=== PATIENT | female | born 1980 | race Caucasian/White ===

== ENCOUNTER 2020-09-24 11:20 | Outpatient (REF) | payer OTHER, SELFPAY ==
--- NOTE | 2020-09-24 11:26 | MM_ITS ---
EXAMINATION: MM SCREENING DIGITAL BREAST TOMOSYNTHESIS, BILATERAL CLINICAL INFORMATION: Screening. Asymptomatic. The lifetime risk of breast cancer based on the Tyrer-Cuzick Model is 7.3%. COMPARISON: Mammography: September 17, 2019 and studies dating back to November 13, 2013 TECHNIQUE: Digital breast tomosynthesis is performed in both the craniocaudal and mediolateral oblique views along with computer-aided detection (CAD). Synthesized 2D images are generated from the tomosynthesis. FINDINGS: The breasts are heterogeneously dense, which may obscure small masses (ACR BI-RADS breast composition Category c). There are no significant masses, abnormal calcifications, or other abnormalities. MM/MM tomosynthesis screening BI IMPRESSION: There are no significant changes from prior study. ASSESSMENT: BI-RADS 1: Negative RECOMMENDATION: Routine annual mammography screening. This patient's information was entered into a reminder system with a target due date for their next mammogram.
== END 2020-09-24 11:21 | disposition home or self-care (01) ==
LOC: HO.MAMMO 11:20
PROVIDERS: PCP Internal Medicine; Visit Provider Internal Medicine
DX: Z12.31 Encounter for screening mammogram for malignant neoplasm of breast (principal)
CPT/HCPCS: 77063; 77067

== ENCOUNTER 2020-11-07 18:17 | Outpatient (REF) | payer OTHER, SELFPAY | END 2020-11-07 18:18 | disposition home or self-care (01) | LOC: HO.LNP 18:17 | PROVIDERS: Visit Provider Internal Medicine | DX: R30.0 Dysuria (principal) | CPT/HCPCS: 87086 ==

== ENCOUNTER 2021-04-09 12:20 | Outpatient (REF) | payer OTHER, SELFPAY ==
[2021-04-09 13:54] LABS: MANUAL DIFF FLAG NO
[2021-04-09 14:00] LABS: Basophils Percent Auto 0.6 % (0-2); Eosinophils Percent Auto 0.6 % (0-4); Hematocrit 33.7 % (37-47); Lymphocytes Absolute Auto 1.1 X10*3/uL (1.2-4.9); Lymphocytes Percent Auto 29.2 % (20-40); Mean Corpuscular HGB Conc 32.6 g/dl (31.0-35.0); Mean Corpuscular Hemoglobin 27.4 pg (27.0-33.0); Mean Corpuscular Volume 83.8 fL (80-98); Mean Platelet Volume 12.3 fL (9.4-12.3); Monocytes Absolute Auto 0.3 X10*3/uL (0.1-1.2); Monocytes Percent Auto 7.7 % (2-11); Neutrophils Absolute Auto 2.3 X10*3/uL (2.0-8.3); Neutrophils Percent Auto 61.9 % (45-73); Platelet Count 203 X10*3/uL (160-400); Red Blood Count 4.02 X10*6/uL (4.20-5.50); Red Cell Distribution Width 12.9 % (11.0-16.0); White Blood Count 3.6 X10*3/uL (4.8-10.8)
[2021-04-09 14:18] LABS: Alanine Aminotransferase 12 U/L (0-31); Albumin Level 4.1 g/dL (3.5-5.0); Alkaline Phosphatase 51 U/L (39-117); Anion Gap 12 (12-20); Aspartate Amino Transferase 16 U/L (5-31); Bilirubin Total 0.6 mg/dL (0.0-1.0); Blood Urea Nitrogen 10 mg/dL (9-16); Carbon Dioxide 25 mmol/L (22-29); Chloride 105 mmol/L (96-108); Cholesterol 158 mg/dL; Estimated Glomerular Filt Rate > 60; Glucose Fasting 81 mg/dL (60-99); HDL Cholesterol 55 mg/dL; LDL Cholesterol Calculated 93 mg/dl; Potassium 3.9 mmol/L (3.3-5.1); Sodium 138 mmol/L (135-145); Total Protein 7.3 g/dL (6.5-8.0); Triglycerides 54 mg/dL
[2021-04-09 14:41] LABS: TSH reflex Free T4 0.94 uIU/mL (0.32-4.0)
[2021-04-14 13:27] LABS: Vitamin D 25-OH, D2 <4 ng/mL; Vitamin D 25-OH, D3 53 ng/mL; Vitamin D 25-OH, Total 53 ng/mL (30-100)
== END 2021-04-09 12:21 | disposition home or self-care (01) ==
LOC: HO.HMGCLDS 12:20
PROVIDERS: PCP Internal Medicine; Visit Provider Internal Medicine
DX: Z00.01 Encounter for general adult medical examination with abnormal findings (principal); E66.3 Overweight; L70.9 Acne, unspecified; R21 Rash and other nonspecific skin eruption
CPT/HCPCS: 36415; 80053; 80061; 82306; 84443; 85025

== ENCOUNTER 2021-04-15 14:48 | Outpatient (REF) | payer OTHER, SELFPAY ==
[2021-04-15 17:00] LABS: Iron 65 mcg/dL (30-160); Percent Iron Saturation 17 % (15-50); Total Iron Binding Capacity 383 mcg/dL (228-428); Unsaturated Iron Binding 318 ug/dL
[2021-04-15 17:20] LABS: Ferritin 11 ng/mL (10-250)
[2021-04-15 17:47] LABS: Vitamin B12 > 2000 pg/mL (200-900)
== END 2021-04-15 14:49 | disposition home or self-care (01) ==
LOC: HO.HMGCLDS 14:48
PROVIDERS: PCP Internal Medicine; Visit Provider Internal Medicine
DX: D64.9 Anemia, unspecified (principal)
CPT/HCPCS: 36415; 82607; 82728; 83540

== ENCOUNTER 2021-10-29 12:53 | Outpatient (REF) | payer OTHER, SELFPAY ==
[2021-10-29 13:07] LABS: Binax Internal Control QC Valid; Binax Now Covid-19 Ag Negative (Negative)
== END 2021-10-29 12:54 | disposition home or self-care (01) ==
LOC: HO.LAB 12:53
PROVIDERS: Visit Provider Internal Medicine
DX: Z20.822 Contact with and (suspected) exposure to COVID-19 (principal)
CPT/HCPCS: C9803

== ENCOUNTER 2023-04-12 12:30 | Outpatient (REF) | payer OTHER, SELFPAY ==
--- NOTE | ~2023-04-12 | XR_ITS ---
EXAMINATION: XR THORACOLUMBAR SPINE CLINICAL INFORMATION: Pain thoracic spine COMPARISON: Lumbar spine 04/02/2016. MRI dorsal spine 11/16/2012 TECHNIQUE: 3 views FINDINGS: Maintained thoracic kyphosis. There is mild deformity of T11 vertebra likely old injury. There is loss of T10-T11 disc height. Rest of the disc heights are normal. No lytic or sclerotic process seen. XR/XR thoracic spine 2V IMPRESSION: Mild deformity of T11 vertebra likely old injury. This was noted on previous MRI 11/16/2012. No additional bony abnormality seen.
[2023-04-12 16:15] LABS: MANUAL DIFF FLAG NO
[2023-04-12 16:29] LABS: Basophils Percent Auto 0.6 % (0-2); Hematocrit 36.1 % (37.0-47.0); Hemoglobin 11.3 g/dl (12.0-16.0); Lymphocytes Absolute Auto 0.9 X10*3/uL (1.2-4.9); Lymphocytes Percent Auto 27.7 % (20-40); Mean Corpuscular HGB Conc 31.3 g/dl (31.0-35.0); Mean Corpuscular Hemoglobin 25.8 pg (27.0-33.0); Mean Corpuscular Volume 82.4 fL (80.0-98.0); Mean Platelet Volume 12.9 fL (9.4-12.3); Monocytes Absolute Auto 0.3 X10*3/uL (0.1-1.2); Monocytes Percent Auto 8.7 % (2-11); Neutrophils Absolute Auto 1.9 x10*3/uL (2.0-8.3); Platelet Count 205 X10*3/uL (160-400); Red Blood Count 4.38 X10*6/uL (4.20-5.50); Red Cell Distribution Width 14.6 % (11.0-16.0); White Blood Count 3.1 X10*3/uL (4.8-10.8)
[2023-04-12 16:57] LABS: Alanine Aminotransferase 11 U/L (0-31); Albumin Level 4.1 g/dL (3.5-5.0); Alkaline Phosphatase 47 U/L (39-117); Anion Gap 10 (12-20); Aspartate Amino Transferase 17 U/L (5-31); Bilirubin Total 0.4 mg/dL (0.0-1.0); Blood Urea Nitrogen 9 mg/dL (9-16); Calcium 9.5 mg/dL (8.4-10.2); Carbon Dioxide 25 mmol/L (22-29); Chloride 107 mmol/L (96-108); Cholesterol 167 mg/dL; Estimated Glomerular Filt Rate > 60; Glucose Fasting 84 mg/dL (60-99); HDL Cholesterol 61 mg/dL; LDL Cholesterol Calculated 98 mg/dl; Potassium 4.3 mmol/L (3.3-5.1); Sodium 138 mmol/L (135-145); Total Protein 7.3 g/dL (6.5-8.0); Triglycerides 44 mg/dL
[2023-04-12 17:05] LABS: Ferritin 6 ng/mL (10-250); TSH reflex Free T4 1.21 uIU/mL (0.32-4.0)
[2023-04-12 17:11] LABS: Vitamin B12 1429 pg/mL (200-900)
[2023-04-17 15:53] LABS: Vitamin D 25-OH, D2 <4 ng/mL; Vitamin D 25-OH, D3 48 ng/mL; Vitamin D 25-OH, Total 48 ng/mL (30-100)
== END 2023-04-12 12:31 | disposition home or self-care (01) ==
LOC: HO.HMGCX 12:30
PROVIDERS: PCP Internal Medicine; Visit Provider Internal Medicine
DX: Z00.01 Encounter for general adult medical examination with abnormal findings (principal); M54.6 Pain in thoracic spine; R21 Rash and other nonspecific skin eruption; R53.83 Other fatigue; G47.9 Sleep disorder, unspecified
CPT/HCPCS: 36415; 72070; 80053; 80061; 82306; 82607; 82728; 84443; 85025

== ENCOUNTER 2023-05-06 13:22 | Outpatient (AMB) | payer OTHER, SELFPAY ==
--- NOTE | 2023-05-06 13:24 | MHC.PC.OV ---
Vital Signs 05/06/23 13:25 Height 5 ft 1 in Weight 155 lb 2 oz BMI 29.3 BP 126/62 Blood Pressure Location Rt brachial Position Sitting Pulse 73 Pulse Source Pulse Oximeter Pulse Oximetry (%) 94 Oxygen Delivery Method Room Air Intake Visit Reasons: 4 week follow up Allergies No Known Allergies Allergy (Verified 05/06/23 13:24) Medication List - Last Reconciled 05/06/23 by Junaid Sadler MD clotrimazole-betamethasone 1-0.05 % 1 appl topical ONCE 30 days Tobacco use date assessed: 05/06/23 Dental Screening Dental Screen Date: 05/06/23 Did you have a dental visit in the last 12 months?: No Did you have a dental problem in the last 6 months where you did not have access to dental care?: No Was dental information given to patient?: No HPI 4 week follow up HPI Details Follow-up appointment Patient never used the cream I sent for her rash Her rash is better X-ray of thoracic spine showed Mild deformity of T11 vertebra likely old injury. This was noted on previous MRI 11/16/2012. No additional bony abnormality seen. Findings explained to patient Iron level is low at 6 hemoglobin slightly low I would recommend for her to start taking iron supplement Should avoid B12 supplement level is still high. [facility] Social History Housing: House Alcohol intake: never Patient Tobacco Use Status: Never used Tobacco e-Cigarette/Vaping Use: Never Used Second Hand Smoke Exposure: No service: No Current occupational status: employed Cognitive needs: No Hearing needs: No Vision needs: No Questionnaire Thrive Questionnaire Date Thrive assessed: 04/06/22 AUDIT C Alcohol Use Questionnaire (AUDIT-C) 1. How often do you have a drink containing alcohol?: Never 3. How often do you have six or more drinks on one occasion?: Never Total Score: 0 Score Reviewed/Action Taken: Yes ANNELIESE-7 AMB Questionnaire ANNELIESE-7 Date ANNELIESE - 7 assessed: 04/06/22 Source: Developed by Drs. David Tracy, Danielle Armstrong, Artemio Drummond and colleagues, with an educational jose from [employer]. Review of Systems Const Denies chills and Denies fever(s) ENT Denies epistaxis and Denies nasal discharge Card Denies chest pain Resp Denies chest congestion, Denies cough and Denies hemoptysis GI Denies diarrhea and Denies nausea Skin/Breast Denies rash Neuro Reports no additional complaints Psych Reports no additional complaints Endo Reports no additional complaints Physical exam (Primary Care) Vital Signs: Last Vital Signs Pulse 73 05/06/23 13:25 BP 126/62 05/06/23 13:25 Pulse Ox 94 05/06/23 13:25 Oxygen Delivery Method Room Air 05/06/23 13:25 BMI result Body Mass Index 29.3 Tobacco/Smoking Status: Tobacco use Status Tobacco use date assessed 05/06/23 05/06/23 13:30 Patient Tobacco Use Status Never used Tobacco 05/06/23 13:30 e-Cigarette/Vaping Use Never Used 05/06/23 13:30 Thrive Assessment: Date of Thrive Assessment Date Thrive assessed 04/06/22 05/06/23 13:30 Const General: cooperative, comfortable and no acute distress Orientation/consciousness: patient oriented x3 HENMT Head: Yes normocephalic Eyes General: appearance normal, both eyes and all related structures Neck Neck: Yes supple Resp Effort & Inspection: normal respiratory effort, no cough and no stridor Cardio Rhythm: regular rhythm Heart sounds: S1 normal heart sound present and S2 normal heart sound present Skin General skin exam: turgor normal Neuro General: patient oriented x3, tone normal and moves all extremities Extrem Right lower extremity: no edema Left lower extremity: no edema Results Reviewed Results Reviewed: Laboratory Tests 04/12/23 04/12/23 04/12/23 12:40 12:40 12:40 Creatinine 0.77 Fasting Glucose 84 Ferritin 6 L LDL Cholesterol, Calc 98 Vitamin B12 1429 H 25-Hydroxy Vitamin D3 48 TSH 1.21 Assessment and Plan Assessment & Plan (1) Iron deficiency anemia: Code(s): D50.9 - Iron deficiency anemia, unspecified (2) Thoracic back pain: Code(s): M54.6 - Pain in thoracic spine (3) Rash: Code(s): R21 - Rash and other nonspecific skin eruption (4) High serum vitamin B12: Code(s): R79.89 - Other specified abnormal findings of blood chemistry Plan Follow-up appointment Patient never used the cream I sent for her rash patient says that she was afraid because it had steroid in it Her rash is better X-ray of thoracic spine showed Mild deformity of T11 vertebra likely old injury. This was noted on previous MRI 11/16/2012. No additional bony abnormality seen. Findings explained to patient Iron level is low at 6 hemoglobin slightly low I would recommend for her to start taking iron supplement She says that she is having abdominal cramping when she takes iron, I would recommend to change the formulation to liquid iron and see if that helps. She can mix that with orange juice Should avoid B12 supplement level is still high. Coding Level of Care Code Est Pt Level 4 (06815) Diagnoses Iron deficiency anemia D50.9 Thoracic back pain M54.6 Rash R21 High serum vitamin B12 R79.89
[2023-05-06 13:25] VITALS: BP 126/62; PULSE 73; O2SAT 94; BMI 29.3
== END 2023-05-06 14:08 | disposition home or self-care (01) ==
PROVIDERS: PCP Internal Medicine; Visit Provider Internal Medicine
DX: D50.9 Iron deficiency anemia, unspecified (principal); M54.6 Pain in thoracic spine; R21 Rash and other nonspecific skin eruption; R79.89 Other specified abnormal findings of blood chemistry
CPT/HCPCS: 99214

== ENCOUNTER 2023-05-24 12:50 | Outpatient (AMB) | payer OTHER, SELFPAY ==
[2023-05-24 13:01] VITALS: BP 108/56; PULSE 63; O2SAT 100; BMI 29.5
--- NOTE | 2023-05-24 13:01 | MHC.PC.OV ---
Vital Signs 05/24/23 13:01 Height 5 ft 1 in Weight 156 lb 6 oz BMI 29.5 BP 108/56 L Blood Pressure Location Rt brachial Position Sitting Pulse 63 Pulse Source Pulse Oximeter Pulse Oximetry (%) 100 Oxygen Delivery Method Room Air Intake Visit Reasons: Discuss iron deficient ~ Allergies No Known Allergies Allergy (Verified 05/24/23 13:03) Tobacco use date assessed: 05/24/23 Dental Screening Dental Screen Date: 05/24/23 Did you have a dental visit in the last 12 months?: No Did you have a dental problem in the last 6 months where you did not have access to dental care?: No Was dental information given to patient?: No HPI Discuss iron deficient ~ HPI Details Patient is a 43-year-old female who continued to have heavy bleeding but does not want to take any medication or try IUD She has already discussed her options with gynecology Came in today to talk about why her B12 level is high and why she is iron deficient She is not taking any B12 supplement her level has gradually gone down. Her anemia is around 11 hemoglobin With microcytic indices. Explain the finding to patient Unless until she address her heavy menstrual cycle I am concerned that she most likely will continue to need iron supplement which she is having difficulty tolerating I have told her to try liquid iron that be usually give to pediatric patients it is [id number] PFSH Social History Housing: House Alcohol intake: never Patient Tobacco Use Status: Never used Tobacco e-Cigarette/Vaping Use: Never Used Second Hand Smoke Exposure: No service: No Current occupational status: employed Cognitive needs: No Hearing needs: No Vision needs: No Questionnaire PHQ-9 Over the last 2 weeks, how often have you been bothered by any of the following problems? 1. Little interest or pleasure in doing things: not at all 2. Feeling down, depressed, or hopeless: not at all 3. Trouble falling or staying asleep, or sleeping too much: not at all 4. Feeling tired or having little energy: not at all 5. Poor appetite or overeating: not at all 6. Feeling bad about yourself - or that you are a failure or have let yourself or your family down: not at all 7. Trouble concentrating on things, such as reading the newspaper or watching television: not at all 8. Moving or speaking so slowly that other people could have noticed. Or the opposite - being so fidgety or restless that you have been moving around a lot more than usual: not at all 9. Thoughts that you would be better off or of hurting yourself in some way: not at all Total score: 0 Depression Screening Interpretation: Negative 83143 - PHQ-9 Billing: Yes Source: Developed by Drs. David Tracy, Danielle Armstrong, Artemio Drummond and colleagues, with an educational jose from [employer]. Thrive Questionnaire Date Thrive assessed: 04/06/22 AUDIT C Alcohol Use Questionnaire (AUDIT-C) 1. How often do you have a drink containing alcohol?: Never 3. How often do you have six or more drinks on one occasion?: Never Total Score: 0 Score Reviewed/Action Taken: Yes ANNELIESE-7 AMB Questionnaire ANNELIESE-7 Date ANNELIESE - 7 assessed: 04/06/22 Source: Developed by Drs. David Tracy, Danielle Armstrong, Artemio Drummond and colleagues, with an educational jose from [employer]. Review of Systems Const Denies chills and Denies fever(s) ENT Denies epistaxis and Denies nasal discharge Card Denies chest pain Resp Denies chest congestion, Denies cough and Denies hemoptysis GI Denies diarrhea and Denies nausea Skin/Breast Denies rash Neuro Reports no additional complaints Psych Reports no additional complaints Endo Reports no additional complaints Physical exam (Primary Care) Vital Signs: Last Vital Signs Pulse 63 05/24/23 13:01 BP 108/56 L 05/24/23 13:01 Pulse Ox 100 05/24/23 13:01 Oxygen Delivery Method Room Air 05/24/23 13:01 BMI result Body Mass Index 29.5 Tobacco/Smoking Status: Tobacco use Status Tobacco use date assessed 05/24/23 05/24/23 13:05 Patient Tobacco Use Status Never used Tobacco 05/24/23 13:01 e-Cigarette/Vaping Use Never Used 05/24/23 13:01 Depression Screening Interpretation: Negative Thrive Assessment: Date of Thrive Assessment Date Thrive assessed 04/06/22 05/24/23 13:01 Const General: cooperative, comfortable and no acute distress Orientation/consciousness: patient oriented x3 HENMT Head: Yes normocephalic Eyes General: appearance normal, both eyes and all related structures Neck Neck: Yes supple Resp Effort & Inspection: normal respiratory effort, no cough and no stridor Cardio Rhythm: regular rhythm Heart sounds: S1 normal heart sound present and S2 normal heart sound present Skin General skin exam: turgor normal Neuro General: patient oriented x3, tone normal and moves all extremities Extrem Right lower extremity: no edema Left lower extremity: no edema Assessment and Plan Assessment & Plan (1) Iron deficiency anemia: Code(s): D50.9 - Iron deficiency anemia, unspecified (2) Heavy menstrual bleeding: Code(s): N92.0 - Excessive and frequent menstruation with regular cycle (3) High serum vitamin B12: Code(s): R79.89 - Other specified abnormal findings of blood chemistry Plan Patient is a 43-year-old female who continued to have heavy bleeding but does not want to take any medication or try IUD She has already discussed her options with gynecology Came in today to talk about why her B12 level is high and why she is iron deficient She is not taking any B12 supplement her level has gradually gone down. Her anemia is around 11 hemoglobin With microcytic indices. Explain the finding to patient Unless until she address her heavy menstrual cycle I am concerned that she most likely will continue to need iron supplement which she is having difficulty tolerating I have told her to try liquid iron that be usually give to pediatric patients it is [id number] Coding Level of Care Code Est Pt Level 3 (71353) Diagnoses Iron deficiency anemia D50.9 Heavy menstrual bleeding N92.0 High serum vitamin B12 R79.89
== END 2023-05-24 14:18 | disposition home or self-care (01) ==
PROVIDERS: PCP Internal Medicine; Visit Provider Internal Medicine
DX: D50.9 Iron deficiency anemia, unspecified (principal); N92.0 Excessive and frequent menstruation with regular cycle; R79.89 Other specified abnormal findings of blood chemistry
CPT/HCPCS: 99213

== ENCOUNTER 2023-09-20 12:11 | Outpatient (REF) | payer OTHER, SELFPAY ==
[2023-09-20 13:12] LABS: MANUAL DIFF FLAG NO
[2023-09-20 13:33] LABS: Basophils Percent Auto 0.6 % (0-2); Eosinophils Percent Auto 0.9 % (0-4); Hematocrit 36.1 % (37.0-47.0); Hemoglobin 11.5 g/dl (12.0-16.0); Imm Gran Abs Auto 0.01 X10*3/uL (0.00-0.03); Imm Gran Pct Auto 0.3 % (0.0-0.4); Lymphocytes Absolute Auto 0.8 X10*3/uL (1.2-4.9); Lymphocytes Percent Auto 24.9 % (20-40); Mean Corpuscular HGB Conc 31.9 g/dl (31.0-35.0); Mean Corpuscular Hemoglobin 26.7 pg (27.0-33.0); Mean Platelet Volume 12.9 fL (9.4-12.3); Monocytes Absolute Auto 0.3 X10*3/uL (0.1-1.2); Monocytes Percent Auto 10.7 % (2-11); Neutrophils Percent Auto 62.6 % (45-73); Platelet Count 181 X10*3/uL (160-400); Red Cell Distribution Width 13.6 % (11.0-16.0); White Blood Count 3.2 X10*3/uL (4.8-10.8)
[2023-09-20 14:27] LABS: Ferritin 12 ng/mL (10-250)
== END 2023-09-20 12:12 | disposition home or self-care (01) ==
LOC: HO.HMGCLDS 12:11
PROVIDERS: PCP Internal Medicine; Visit Provider Internal Medicine
DX: D50.9 Iron deficiency anemia, unspecified (principal)
CPT/HCPCS: 36415; 82728; 85025

== ENCOUNTER 2023-09-21 12:42 | Outpatient (AMB) | payer OTHER, SELFPAY ==
[2023-09-21 12:51] VITALS: BP 110/60; PULSE 73; O2SAT 99; BMI 29.7
--- NOTE | 2023-09-21 12:51 | A.OFFPC_ITS ---
Vital Signs 09/21/23 12:51 Height 5 ft 1 in Weight 157 lb 2 oz BMI 29.7 BP 110/60 Blood Pressure Location Rt brachial Position Sitting Pulse 73 Pulse Source Pulse Oximeter Pulse Oximetry (%) 99 Oxygen Delivery Method Room Air Intake Visit Reasons: 3 Month Follow Up~ Allergies No Known Allergies Allergy (Verified 09/21/23 12:52) Medication List - Last Reconciled 09/21/23 by Junaid Sadler MD ferrous sulfate 300 mg (5 mL) PO BID 90 days Tobacco use date assessed: 09/21/23 Dental Screening Dental Screen Date: 09/21/23 Did you have a dental visit in the last 12 months?: Yes Did you have a dental problem in the last 6 months where you did not have access to dental care?: No Was dental information given to patient?: Patient has dentist HPI 3 Month Follow Up~ HPI Details Patient is a 43-year-old female came in today to go over her labs Patient have chronic low white count, and hemoglobin Her B12 level is elevated. She has never seen Hematology for evaluation Patient have no other complaints or symptoms I placed a referral for her to be evaluated by Hematology. [facility] Social History Housing: House Alcohol intake: never Patient Tobacco Use Status: Never used Tobacco e-Cigarette/Vaping Use: Never Used Second Hand Smoke Exposure: No service: No Current occupational status: employed Cognitive needs: No Hearing needs: No Vision needs: No Questionnaire Thrive Questionnaire Date Thrive assessed: 04/06/22 AUDIT C Alcohol Use Questionnaire (AUDIT-C) 1. How often do you have a drink containing alcohol?: Never 3. How often do you have six or more drinks on one occasion?: Never Total Score: 0 Score Reviewed/Action Taken: Yes ANNELIESE-7 AMB Questionnaire ANNELIESE-7 Date ANNELIESE - 7 assessed: 04/06/22 Source: Developed by Drs. David Tracy, Danielle Armstrong, Artemio Drummond and colleagues, with an educational jose from [employer]. Review of Systems Const Denies chills and Denies fever(s) ENT Denies epistaxis and Denies nasal discharge Card Denies chest pain Resp Denies chest congestion, Denies cough and Denies hemoptysis GI Denies diarrhea and Denies nausea Skin/Breast Denies rash Neuro Reports no additional complaints Psych Reports no additional complaints Endo Reports no additional complaints Physical exam (Primary Care) Vital Signs: Last Vital Signs Pulse 73 09/21/23 12:51 BP 110/60 09/21/23 12:51 Pulse Ox 99 09/21/23 12:51 Oxygen Delivery Method Room Air 09/21/23 12:51 BMI result Body Mass Index 29.7 Tobacco/Smoking Status: Tobacco use Status Tobacco use date assessed 09/21/23 09/21/23 12:55 Patient Tobacco Use Status Never used Tobacco 09/21/23 12:55 e-Cigarette/Vaping Use Never Used 09/21/23 12:55 Thrive Assessment: Date of Thrive Assessment Date Thrive assessed 04/06/22 09/21/23 12:55 Const General: cooperative, comfortable and no acute distress Orientation/consciousness: patient oriented x3 HENMT Head: Yes normocephalic Eyes General: appearance normal, both eyes and all related structures Neck Neck: Yes supple Resp Effort & Inspection: normal respiratory effort, no cough and no stridor Cardio Rhythm: regular rhythm Heart sounds: S1 normal heart sound present and S2 normal heart sound present Skin General skin exam: turgor normal Neuro General: patient oriented x3, tone normal and moves all extremities Extrem Right lower extremity: no edema Left lower extremity: no edema Assessment and Plan Assessment & Plan (1) Neutropenia: Code(s): D70.9 - Neutropenia, unspecified Qualifiers: Neutropenia type: unspecified Qualified Code(s): D70.9 - Neutropenia, unspecified (2) High serum vitamin B12: Code(s): R79.89 - Other specified abnormal findings of blood chemistry (3) Iron deficiency anemia: Code(s): D50.9 - Iron deficiency anemia, unspecified Qualifiers: Iron deficiency anemia type: unspecified iron deficiency Qualified Code(s): D50.9 - Iron deficiency anemia, unspecified Plan Patient is a 43-year-old female came in today to go over her labs Patient have chronic low white count, and hemoglobin Her B12 level is elevated. She has never seen Hematology for evaluation Patient have no other complaints or symptoms I placed a referral for her to be evaluated by Hematology. Orders: Referrals Hematology & Oncology Referral D70.9 - Neutropenia, unspecified Coding Level of Care Code Est Pt Level 3 (48385) Diagnoses Neutropenia, unspecified type D70.9 Neutropenia type: unspecified High serum vitamin B12 R79.89 Iron deficiency anemia, unspecified iron deficiency anemia type D50.9 Iron deficiency anemia type: unspecified iron deficiency
== END 2023-09-21 16:49 | disposition home or self-care (01) ==
LOC: HO.HMGC 12:42
PROVIDERS: PCP Internal Medicine; Visit Provider Internal Medicine
DX: D70.9 Neutropenia, unspecified (principal); R79.89 Other specified abnormal findings of blood chemistry; D50.9 Iron deficiency anemia, unspecified
CPT/HCPCS: 99213

== ENCOUNTER → 2023-10-25 12:59 | Outpatient (BNV) | payer OTHER, SELFPAY | PROVIDERS: PCP Internal Medicine; Visit Provider Internal Medicine | DX: D70.9 Neutropenia, unspecified (principal); D50.9 Iron deficiency anemia, unspecified | CPT/HCPCS: 99204 ==

== ENCOUNTER 2024-04-10 13:43 | Outpatient (AMB) | payer OTHER, SELFPAY ==
[2024-04-10 13:44] VITALS: BP 122/66; PULSE 75; O2SAT 100; BMI 30.1
--- NOTE | 2024-04-10 13:44 | A.OFFPC_ITS ---
Vital Signs 04/10/24 13:44 Height 5 ft 1 in Weight 159 lb 4 oz BMI 30.1 BP 122/66 Blood Pressure Location Rt brachial Position Sitting Pulse 75 Pulse Source Pulse Oximeter Pulse Oximetry (%) 100 Oxygen Delivery Method Room Air Intake Visit Reasons: PE Allergies No Known Allergies Allergy (Verified 04/10/24 13:44) Medication List - Last Reconciled 04/10/24 by Junaid Sadler MD cholecalciferol (vitamin D3) (Vitamin D3) 125 mcg PO DAILY ferrous sulfate 300 mg (5 mL) PO BID 90 days Tobacco use date assessed: 04/10/24 Dental Screening Dental Screen Date: 04/10/24 Did you have a dental visit in the last 12 months?: Yes Did you have a dental problem in the last 6 months where you did not have access to dental care?: No Was dental information given to patient?: Patient has dentist HPI PE HPI Details Patient is a 44-year-old female came in today for physical exam Patient is taking care of her mother at home, she is complaining of mid back pain I have ordered physical therapy for the patient Lab order placed to be done fasting She is due for Pap smear, OBGYN referral placed Due for mammogram order placed Declined to do colonoscopy [facility] Social History Housing: House Alcohol intake: never Patient Tobacco Use Status: Never used Tobacco e-Cigarette/Vaping Use: Never Used Second Hand Smoke Exposure: No service: No Current occupational status: employed Cognitive needs: No Hearing needs: No Vision needs: No Questionnaire PHQ-9 Over the last 2 weeks, how often have you been bothered by any of the following problems? 1. Little interest or pleasure in doing things: not at all 2. Feeling down, depressed, or hopeless: not at all 3. Trouble falling or staying asleep, or sleeping too much: not at all 4. Feeling tired or having little energy: not at all 5. Poor appetite or overeating: not at all 6. Feeling bad about yourself - or that you are a failure or have let yourself or your family down: not at all 7. Trouble concentrating on things, such as reading the newspaper or watching television: not at all 8. Moving or speaking so slowly that other people could have noticed. Or the opposite - being so fidgety or restless that you have been moving around a lot more than usual: not at all 9. Thoughts that you would be better off or of hurting yourself in some way: not at all Total score: 0 Depression Screening Interpretation: Negative Depression Screening Done: Yes 68808 - PHQ-9 Billing: Yes Source: Developed by Drs. David Tracy, Danielle Armstrong, Artemio Drummond and colleagues, with an educational jose from [employer]. Thrive Questionnaire Date Thrive assessed: 04/06/22 ANNELIESE-7 AMB Questionnaire ANNELIESE-7 Date ANNELIESE - 7 assessed: 04/06/22 Source: Developed by Drs. David Tracy, Danielle Armstrong, Artemio Drummond and colleagues, with an educational jose from [employer]. Review of Systems Const Denies chills, Denies fever(s) and Denies headache(s) Eyes Denies blurry vision ENT Denies headache(s), Denies nasal discharge, Denies nasal obstruction, Denies odynophagia and Denies sinus pain Card Denies chest pain at rest and Denies chest pain with activity Resp Denies cough and Denies hemoptysis GI Denies diarrhea, Denies odynophagia, Denies vomiting and Denies hematemesis Reports as per HPI Musc Denies abnormal gait Skin/Breast Reports as per HPI Neuro Denies Neuro-related abnormal movements, Denies Abnormal speech present, Denies abnormal gait, Denies headache(s) and Denies Sensory deficit (Neuro) Psych Denies mood swings and Denies paranoia Endo Reports as per HPI Mario/Lymph Reports as per HPI Aller/Immun Reports as per HPI Physical exam (Primary Care) Vital Signs: Last Vital Signs Pulse 75 04/10/24 13:44 BP 122/66 04/10/24 13:44 Pulse Ox 100 04/10/24 13:44 Oxygen Delivery Method Room Air 04/10/24 13:44 BMI result Body Mass Index 30.1 Tobacco/Smoking Status: Tobacco use Status Tobacco use date assessed 04/10/24 04/10/24 13:44 Patient Tobacco Use Status Never used Tobacco 04/10/24 13:44 e-Cigarette/Vaping Use Never Used 04/10/24 13:44 Depression Screening Interpretation: Negative Thrive Assessment: Date of Thrive Assessment Date Thrive assessed 04/06/22 04/10/24 13:44 Const General: cooperative, comfortable and no acute distress Orientation/consciousness: patient oriented x3 HENMT Head: Yes normocephalic and Yes atraumatic Eyes General: appearance normal, both eyes and all related structures Pupils: Equal, round and reactive pupils present EOM: EOMs intact bilaterally Neck Neck: Yes supple and No lymphadenopathy Thyroid: Thyroid normal Lymphatic: no lymphadenopathy noted Chest Breast/axilla palpation: normal palpation of the breasts Resp Effort & Inspection: normal respiratory effort and able to speak in complete sentences Auscultation: clear to auscultation bilaterally Cardio Heart sounds: S1 normal heart sound present and S2 normal heart sound present GI Palpation (GI): Soft to palpation and nontender Auscultation: normal bowel sounds General: Yes no CVA tenderness Back/Spine/Pelvis Back: no CVA tenderness Skin General skin exam: elasticity normal and turgor normal Neuro General: patient oriented x3 and gait normal Cranial nerves: Yes Equal, round and reactive pupils present Speech: No Abnormal speech present Sensory Exam: No Sensory deficit (Neuro) Coordination: tandem gait normal and Romberg test negative Extrem General: Yes normal exam except as noted and No edema Assessment and Plan Assessment & Plan (1) Encounter for general adult medical examination with abnormal findings: Code(s): Z00.01 - Encounter for general adult medical examination with abnormal findings (2) Neutropenia: Code(s): D70.9 - Neutropenia, unspecified Qualifiers: Neutropenia type: unspecified Qualified Code(s): D70.9 - Neutropenia, unspecified (3) Mid back pain: Code(s): M54.9 - Dorsalgia, unspecified Plan Patient is a 44-year-old female came in today for physical exam Patient is taking care of her mother at home, she is complaining of mid back pain I have ordered physical therapy for the patient Lab order placed to be done fasting She is due for Pap smear, OBGYN referral placed Due for mammogram order placed Declined to do colonoscopy She has a history of mild neutropenia and has been evaluated by Hematology already Orders: Orders Complete Blood Count Auto Diff Today D70.9 - Neutropenia, unspecified, Z00.01 - Encounter for general adult medical examination with abnormal findings Vitamin D 25-OH (D2 and D3) Today D70.9 - Neutropenia, unspecified, Z00.01 - Encounter for general adult medical examination with abnormal findings Comprehensive [place]. Panel Fast Today D70.9 - Neutropenia, unspecified, Z00.01 - Encounter for general adult medical examination with abnormal findings Lipid Panel Today D70.9 - Neutropenia, unspecified, Z00.01 - Encounter for general adult medical examination with abnormal findings TSH reflex Free T4 Today D70.9 - Neutropenia, unspecified, Z00.01 - Encounter for general adult medical examination with abnormal findings MM tomosynthesis screening BI Today Z12.31 - Encounter for screening mammogram for malignant neoplasm of breast PT Evaluation and Treatment Today M54.9 - Dorsalgia, unspecified Referrals POUNCER Referral Z01.419 - Encounter for gynecological examination (general) (routine) without abnormal findings Coding Level of Care Code Est Pt Level 3 (25646) Est Pt Prev Care 40-64y(34829) Diagnoses Encounter for general adult medical examination with abnormal findings Z00.01 Neutropenia, unspecified type D70.9 Neutropenia type: unspecified Mid back pain M54.9
== END 2024-04-10 14:12 | disposition home or self-care (01) ==
LOC: HO.HMGC 13:43
PROVIDERS: PCP Internal Medicine; Visit Provider Internal Medicine
DX: Z00.01 Encounter for general adult medical examination with abnormal findings (principal); D70.9 Neutropenia, unspecified; M54.9 Dorsalgia, unspecified
CPT/HCPCS: 99213; 99396

== ENCOUNTER 2024-04-26 12:15 | Outpatient (REF) | payer OTHER, SELFPAY ==
--- NOTE | ~2024-04-26 | MM_ITS ---
EXAMINATION: MM SCREENING DIGITAL BREAST TOMOSYNTHESIS, BILATERAL CLINICAL INFORMATION: Screening. Asymptomatic. COMPARISON: Mammography: This study is compared with prior exams dating back to 2018. TECHNIQUE: Digital breast tomosynthesis is performed in both the craniocaudal and mediolateral oblique views along with computer-aided detection (CAD). Synthesized 2D images are generated from the tomosynthesis. FINDINGS: There are scattered areas of fibroglandular density (ACR BI-RADS breast composition Category b). In the lateral aspect of the right breast, there is an asymmetry which warrants additional mammographic and targeted sonographic imaging. In the left breast, no are no significant masses, abnormal calcifications, or other abnormalities. MM/MM tomosynthesis screening BI IMPRESSION: Asymmetry of the right breast warrants additional mammographic and targeted sonographic imaging. No mammographic signs of malignancy left breast. ASSESSMENT: BI-RADS BI-RADS 0 - Incomplete: Needs additional Imaging. RECOMMENDATION: 1. Additional views of the right breast. 2. Targeted ultrasound if warranted after review of the additional views. 3. Radiology department staff will contact the patient for additional imaging. Additional Imaging required This examination should not preclude the clinical evaluation of a suspicious palpable abnormality. This patient's information was entered into a reminder system with a target due date for their next mammogram.
== END 2024-04-26 12:16 | disposition home or self-care (01) ==
LOC: HO.MAMMO 12:15
PROVIDERS: PCP Internal Medicine; Visit Provider Internal Medicine
DX: Z12.31 Encounter for screening mammogram for malignant neoplasm of breast (principal)
CPT/HCPCS: 77063; 77067

== ENCOUNTER → 2024-04-26 12:15 | Outpatient (BNV) | payer OTHER, SELFPAY | PROVIDERS: PCP Internal Medicine; Visit Provider Radiology Diagnostic Radiology | DX: Z12.31 Encounter for screening mammogram for malignant neoplasm of breast (principal) | CPT/HCPCS: 77063; 77067 ==

== ENCOUNTER 2024-05-02 11:39 | Outpatient (REF) | payer OTHER, SELFPAY ==
[2024-05-02 13:16] LABS: MANUAL DIFF FLAG NO
[2024-05-02 13:30] LABS: Basophils Percent Auto 0.6 % (0-2); Eosinophils Absolute Auto 0.1 X10*3/uL (0.0-0.4); Eosinophils Percent Auto 2.6 % (0-4); Hematocrit 33.1 % (37.0-47.0); Hemoglobin 10.7 g/dl (12.0-16.0); Imm Gran Abs Auto 0.01 X10*3/uL (0.00-0.03); Imm Gran Pct Auto 0.3 % (0.0-0.4); Lymphocytes Absolute Auto 0.9 X10*3/uL (1.2-4.9); Lymphocytes Percent Auto 29.5 % (20-40); Mean Corpuscular HGB Conc 32.3 g/dl (31.0-35.0); Mean Corpuscular Hemoglobin 27.4 pg (27.0-33.0); Mean Corpuscular Volume 84.9 fL (80.0-98.0); Mean Platelet Volume 12.8 fL (9.4-12.3); Monocytes Absolute Auto 0.3 X10*3/uL (0.1-1.2); Neutrophils Absolute Auto 1.8 x10*3/uL (2.0-8.3); Platelet Count 173 X10*3/uL (160-400); Red Cell Distribution Width 12.9 % (11.0-16.0); White Blood Count 3.1 X10*3/uL (4.8-10.8)
[2024-05-02 14:02] LABS: Alanine Aminotransferase 10 U/L (0-31); Albumin Level 3.9 g/dL (3.5-5.0); Alkaline Phosphatase 41 U/L (39-117); Anion Gap 8 (12-20); Aspartate Amino Transferase 15 U/L (5-31); Bilirubin Total 0.3 mg/dL (0.0-1.0); Blood Urea Nitrogen 9 mg/dL (9-16); Carbon Dioxide 28 mmol/L (22-29); Chloride 107 mmol/L (96-108); Cholesterol 154 mg/dL (<200); Estimated Glomerular Filt Rate > 60; Glucose Fasting 90 mg/dL (60-99); HDL Cholesterol 51 mg/dL (>40); LDL Cholesterol Calculated 93 mg/dL (<100); Potassium 3.7 mmol/L (3.3-5.1); Sodium 139 mmol/L (135-145); TSH reflex Free T4 1.44 uIU/mL (0.32-4.0); Total Protein 6.8 g/dL (6.5-8.0); Triglycerides 53 mg/dL (<150)
[2024-05-06 16:33] LABS: Vitamin D 25-OH, D2 <4 ng/mL; Vitamin D 25-OH, D3 47 ng/mL; Vitamin D 25-OH, Total 47 ng/mL (30-100)
== END 2024-05-02 11:40 | disposition home or self-care (01) ==
LOC: HO.HMGCLDS 11:39
PROVIDERS: PCP Internal Medicine; Visit Provider Internal Medicine
DX: Z00.01 Encounter for general adult medical examination with abnormal findings (principal); D70.9 Neutropenia, unspecified
CPT/HCPCS: 36415; 80053; 80061; 82306; 84443; 85025

== ENCOUNTER 2024-05-03 08:14 | Outpatient (AMB) | payer OTHER, SELFPAY ==
--- NOTE | 2024-05-03 10:22 | A.OFFPC_ITS ---
Intake Visit Reasons: Discuss Results~ [phone] Allergies No Known Allergies Allergy (Verified 04/10/24 13:44) Medication List - Last Reconciled 05/03/24 by Junaid Sadler MD cholecalciferol (vitamin D3) (Vitamin D3) 125 mcg PO DAILY ferrous sulfate 300 mg (5 mL) PO BID 90 days Tobacco use date assessed: 04/10/24 Dental Screening Dental Screen Date: 04/10/24 HPI Discuss Results~ [phone] HPI Details Patient had labs done recently I see that her Hb has dropped to 10.7 it was 12.1 in jah she says she was taking iron supplement then but then she stopped taking when her Hb came back normal she is still having heavy menstrual cycle and now also having it twice a month sometimes she is to restart iron supplement twice a day for next 3 M and then repeat labs again recently she also had Mammogram and needed extra imaging explain to her why its needed, as patient is declining it continue Vit D supplement PFSH Social History Housing: House Alcohol intake: never Patient Tobacco Use Status: Never used Tobacco e-Cigarette/Vaping Use: Never Used Second Hand Smoke Exposure: No service: No Current occupational status: employed Cognitive needs: No Hearing needs: No Vision needs: No Questionnaire Thrive Questionnaire Date Thrive assessed: 04/06/22 ANNELIESE-7 AMB Questionnaire ANNELIESE-7 Date ANNELIESE - 7 assessed: 04/06/22 Source: Developed by Drs. David Tracy, Danielle Armstrong, Artemio Drummond and colleagues, with an educational jose from [employer]. Review of Systems Const Denies chills and Denies fever(s) ENT Denies epistaxis and Denies nasal discharge Card Denies chest pain Resp Denies chest congestion, Denies cough and Denies hemoptysis GI Denies diarrhea and Denies nausea Skin/Breast Denies rash Neuro Reports no additional complaints Psych Reports no additional complaints Endo Reports no additional complaints Physical exam (Primary Care) Tobacco/Smoking Status: Tobacco use Status Tobacco use date assessed 04/10/24 05/03/24 10:26 Patient Tobacco Use Status Never used Tobacco 05/03/24 10:26 e-Cigarette/Vaping Use Never Used 05/03/24 10:26 Thrive Assessment: Date of Thrive Assessment Date Thrive assessed 04/06/22 05/03/24 10:26 Const General: cooperative, comfortable and no acute distress Orientation/consciousness: patient oriented x3 HENMT Head: Yes normocephalic Eyes General: appearance normal, both eyes and all related structures Neck Neck: Yes supple Resp Effort & Inspection: normal respiratory effort, no cough and no stridor Cardio Rhythm: regular rhythm Heart sounds: S1 normal heart sound present and S2 normal heart sound present Skin General skin exam: turgor normal Neuro General: patient oriented x3, tone normal and moves all extremities Extrem Right lower extremity: no edema Left lower extremity: no edema Telehealth Telehealth Telehealth Platform: [email or web address] Location of provider rendering services: practice address Location of patient: address on file Patient Identification confirmed using: Name, : Yes Telehealth method: video (attempted) Patient verbally consented to treatment: Yes Patient verbally consented to billing insurance company: Yes Patient informed of any privacy concerns related to visit: Yes Assessment and Plan Assessment & Plan (1) Iron deficiency anemia: Code(s): D50.9 - Iron deficiency anemia, unspecified Qualifiers: Iron deficiency anemia type: unspecified iron deficiency Qualified Code(s): D50.9 - Iron deficiency anemia, unspecified (2) Neutropenia: Code(s): D70.9 - Neutropenia, unspecified Qualifiers: Neutropenia type: unspecified Qualified Code(s): D70.9 - Neutropenia, unspecified (3) Tired: Code(s): R53.83 - Other fatigue (4) Dysfunctional uterine bleeding: Code(s): N93.8 - Other specified abnormal uterine and vaginal bleeding (5) Abnormal mammogram: Code(s): R92.8 - Other abnormal and inconclusive findings on diagnostic imaging of breast Plan Patient had labs done recently I see that her Hb has dropped to 10.7 it was 12.1 in oct she was c/o of feeling tired she says she was taking iron supplement then but then she stopped taking when her Hb came back normal she is still having heavy menstrual cycle and now also having it twice a month s ometimes she is to restart iron supplement twice a day for next 3 M and then repeat labs again recently she also had Mammogram and needed extra imaging explain to her why its needed, as patient is declining it continue Vit D supplement WBC count is low but stable 30 min spent in care of this patient Orders: Orders Complete Blood Count Auto Diff 3 Months D50.9 - Iron deficiency anemia, unspecified Ferritin 3 Months D50.9 - Iron deficiency anemia, unspecified Medications: Refilled ferrous sulfate 300 mg (5 mL) PO BID 900 mL 0RF 90 days Coding Level of Care Code Tele Est Pt Level 4 (49254) Diagnoses Iron deficiency anemia, unspecified iron deficiency anemia type D50.9 Iron deficiency anemia type: unspecified iron deficiency Neutropenia, unspecified type D70.9 Neutropenia type: unspecified Tired R53.83 Dysfunctional uterine bleeding N93.8 Abnormal mammogram R92.8
== END 2024-05-03 11:17 | disposition home or self-care (01) ==
LOC: HO.HMGC 08:15
PROVIDERS: PCP Internal Medicine; Visit Provider Internal Medicine
DX: D50.9 Iron deficiency anemia, unspecified (principal); D70.9 Neutropenia, unspecified; R53.83 Other fatigue; N93.8 Other specified abnormal uterine and vaginal bleeding; R92.8 Other abnormal and inconclusive findings on diagnostic imaging of breast
CPT/HCPCS: 99214

== ENCOUNTER 2024-07-30 12:04 | Outpatient (REF) | payer OTHER, SELFPAY ==
[2024-07-30 13:50] LABS: MANUAL DIFF FLAG NO
[2024-07-30 14:02] LABS: Basophils Percent Auto 0.3 % (0-2); Eosinophils Absolute Auto 0.1 X10*3/uL (0.0-0.4); Eosinophils Percent Auto 1.3 % (0-4); Hematocrit 38.5 % (37.0-47.0); Hemoglobin 12.4 g/dl (12.0-16.0); Imm Gran Abs Auto 0.02 X10*3/uL (0.00-0.03); Imm Gran Pct Auto 0.5 % (0.0-0.4); Lymphocytes Percent Auto 24.4 % (20-40); Mean Corpuscular HGB Conc 32.2 g/dl (31.0-35.0); Mean Corpuscular Hemoglobin 27.3 pg (27.0-33.0); Mean Corpuscular Volume 84.6 fL (80.0-98.0); Mean Platelet Volume 12.7 fL (9.4-12.3); Monocytes Absolute Auto 0.2 X10*3/uL (0.1-1.2); Monocytes Percent Auto 5.9 % (2-11); Neutrophils Absolute Auto 2.7 x10*3/uL (2.0-8.3); Neutrophils Percent Auto 67.6 % (45-73); Platelet Count 201 X10*3/uL (160-400); Red Blood Count 4.55 X10*6/uL (4.20-5.50); Red Cell Distribution Width 12.8 % (11.0-16.0); White Blood Count 3.9 X10*3/uL (4.8-10.8)
[2024-07-30 14:32] LABS: Ferritin 21 ng/mL (10-250)
[2024-07-31 12:07] LABS: HBS Num1 6.19 mIU/mL (0-7.99); ~Hepatitis B Surface Antibody NONREACTIVE (Nonreactive)
[2024-07-31 13:39] LABS: Rubella IgG Antibody 2.64 Index; Varicella IgG Antibody 5.54 S/CO
[2024-08-02 06:07] LABS: TS Negative Control Passed; TS Panel A 0; TS Panel B 0; TS Positive Control Passed; TSpotTB Negative (Negative)
== END 2024-07-30 12:05 | disposition home or self-care (01) ==
LOC: HO.HMGCLDS 12:04
PROVIDERS: PCP Internal Medicine; Visit Provider Internal Medicine
DX: D50.9 Iron deficiency anemia, unspecified (principal); Z28.39 Other underimmunization status
CPT/HCPCS: 36415; 82728; 85025; 86481; 86706; 86735; 86762; 86765; 86787

== ENCOUNTER 2024-08-28 14:51 | Outpatient (AMB) | payer OTHER, SELFPAY ==
--- NOTE | 2024-08-28 14:53 | MHC.PC.OV ---
Intake Visit Reasons: Paperwork Allergies No Known Allergies Allergy (Verified 08/28/24 14:54) Medication List - Last Reconciled 08/28/24 by Junaid Sadler MD cholecalciferol (vitamin D3) (Vitamin D3) 125 mcg PO DAILY ferrous sulfate 300 mg (5 mL) PO BID 90 days Tobacco use date assessed: 08/28/24 Dental Screening Dental Screen Date: 08/28/24 Did you have a dental visit in the last 12 months?: Yes Did you have a dental problem in the last 6 months where you did not have access to dental care?: No Was dental information given to patient?: Patient has dentist HPI Paperwork HPI Details This is a telemedicine visit 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 [facility] Social History Housing: House Alcohol intake: never Patient Tobacco Use Status: Never used Tobacco e-Cigarette/Vaping Use: Never Used Second Hand Smoke Exposure: No service: No Current occupational status: employed Cognitive needs: No Hearing needs: No Vision needs: No Questionnaire Thrive Questionnaire Date Thrive assessed: 04/06/22 ANNELIESE-7 AMB Questionnaire ANNELIESE-7 Date ANNELIESE - 7 assessed: 04/06/22 Source: Developed by Drs. David Tracy, Danielle Armstrong, Artemio Drummond and colleagues, with an educational jose from [employer]. Review of Systems Const All systems reviewed & are unremarkable except as noted in HPI and below Physical exam (Primary Care) Tobacco/Smoking Status: Tobacco use Status Tobacco use date assessed 08/28/24 08/28/24 14:55 Patient Tobacco Use Status Never used Tobacco 08/28/24 14:53 e-Cigarette/Vaping Use Never Used 08/28/24 14:53 Thrive Assessment: Date of Thrive Assessment Date Thrive assessed 04/06/22 08/28/24 14:53 Telehealth Telehealth Telehealth [facility]: [facility] Location of provider rendering services: practice address Location of patient: address on file Patient Identification confirmed using: Name, : Yes Telehealth method: voice only Patient verbally consented to treatment: Yes Patient verbally consented to billing insurance company: Yes Patient informed of any privacy concerns related to visit: Yes Minutes spent on Phone/Video with Pt.: 12 Coding Level of Care Code Tele Est Pt Level 3 (99778) Diagnoses Immunizations incomplete Z28.39 Assessment & Plan Assessment & Plan (1) Immunizations incomplete: Code(s): Z28.39 - Other underimmunization status Category: Medical Plan This is a telemedicine visit 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
== END 2024-08-28 16:14 | disposition home or self-care (01) ==
LOC: HO.HMCC 14:51
PROVIDERS: PCP Internal Medicine; Visit Provider Internal Medicine
DX: Z28.39 Other underimmunization status (principal)

== ENCOUNTER 2024-09-07 14:56 | Outpatient (AMB) | payer OTHER, SELFPAY ==
--- NOTE | 2024-09-07 15:01 | A.OFFPC_ITS ---
Vital Signs 09/07/24 15:02 Height 5 ft 1 in Weight 156 lb BMI 29.5 BP 110/62 Blood Pressure Location Lt brachial Position Sitting Pulse 63 Pulse Source Pulse Oximeter Pulse Oximetry (%) 99 Oxygen Delivery Method Room Air Intake Visit Reasons: MMR Vac Allergies No Known Allergies Allergy (Verified 09/07/24 15:03) Medication List - Last Reconciled 09/07/24 by Junaid Sadler MD cholecalciferol (vitamin D3) (Vitamin D3) 125 mcg PO DAILY ferrous sulfate 300 mg (5 mL) PO BID 90 days Tobacco use date assessed: 09/07/24 Dental Screening Dental Screen Date: 09/07/24 Did you have a dental visit in the last 12 months?: No Did you have a dental problem in the last 6 months where you did not have access to dental care?: No Was dental information given to patient?: Patient has dentist HPI MMR Vac HPI Details Assessment and Plan 44-year-old female [facility] due to insufficient immunity detected in recent laboratory assessments. Her immunity to Measles, is inadequate, and she is also non-reactive for Hepatitis B despite potential past vaccination. The primary goal of today's visit is to initiate and complete the necessary vaccination schedule to ensure adequate immunity. 1. Insufficient Immunity To Measles Administered the MMR booster in the current visit to address insufficient immunity. Discussed the potential side effects of vaccines, including local pain, swelling, and allergic reactions. 2. Non-Reactive Hepatitis B Immunity Initiated the Hepatitis B vaccination series with the first injection administered today. The series will be completed over six months with subsequent injections scheduled at one to three months and then at six months. Documentation of each administration will be provided, and the patient is advised to schedule the remaining doses accordingly. Emphasized the importance of completing all three shots to achieve immunity. Diagnostic results - Labs: - Non-reactive Hepatitis B immun ity - Insufficient immunity to Mumps, Rubell a, and Measles confirmed through laboratories Problem List - Insufficient Immunity to Measles, Mump s, and Rubella - Non-reactive Hepatitis B Immunity Patient Instructions - Receive the first Hepatitis B vaccine today and follow the schedule for the remaining doses. - Return for the remaining two Hepatitis B doses as scheduled in one to three months and six months following the first dose. - [facility] to avoid overstressing the immune system with multiple vaccines today. - Monitor for any side effects from the vaccines, such as local pain or swelling, and seek medical attention if severe reactions occur. - Document each vaccine administration i n your health records to ensure proper follow-up. [facility]LY [facility], [facility] Social History Housing: House Alcohol intake: never Patient Tobacco Use Status: Never used Tobacco e-Cigarette/Vaping Use: Never Used Second Hand Smoke Exposure: No service: No Current occupational status: employed Cognitive needs: No Hearing needs: No Vision needs: No Questionnaire Thrive Questionnaire Date Thrive assessed: 04/06/22 ANNELIESE-7 AMB Questionnaire ANNELIESE-7 Date ANNELIESE - 7 assessed: 04/06/22 Source: Developed by Drs. David Tracy, Danielle Armstrong, Artemio Drummond and colleagues, with an educational jose from [employer]. Review of Systems Const Denies chills and Denies fever(s) ENT Denies epistaxis and Denies nasal discharge Card Denies chest pain Resp Denies chest congestion, Denies cough and Denies hemoptysis GI Denies diarrhea and Denies nausea Skin/Breast Denies rash Neuro Reports no additional complaints Psych Reports no additional complaints Endo Reports no additional complaints Physical exam (Primary Care) Vital Signs: Last Vital Signs Pulse 63 09/07/24 15:02 BP 110/62 09/07/24 15:02 Pulse Ox 99 09/07/24 15:02 Oxygen Delivery Method Room Air 09/07/24 15:02 BMI result Body Mass Index 29.5 Tobacco/Smoking Status: Tobacco use Status Tobacco use date assessed 09/07/24 09/07/24 15:05 Patient Tobacco Use Status Never used Tobacco 09/07/24 15:05 e-Cigarette/Vaping Use Never Used 09/07/24 15:05 Thrive Assessment: Date of Thrive Assessment Date Thrive assessed 04/06/22 09/07/24 15:05 Const General: cooperative, comfortable and no acute distress Orientation/consciousness: patient oriented x3 HENMT Head: Yes normocephalic Eyes General: appearance normal, both eyes and all related structures Neck Neck: Yes supple Resp Effort & Inspection: normal respiratory effort, no cough and no stridor Cardio Rhythm: regular rhythm Heart sounds: S1 normal heart sound present and S2 normal heart sound present Skin General skin exam: turgor normal Neuro General: patient oriented x3, tone normal and moves all extremities Extrem Right lower extremity: no edema Left lower extremity: no edema Immunizations Engerix-B (PF) 20 mcg/mL intramuscular syringe Performing Provider: Junaid Sadler MD Performing Location: [facility] [place] [facility] Administered by: Griffin Mccray CMA on 09/07/24 15:39 Dose Route Admin Location Dispensed Lot Number Expiration Date [facility] [place][NOTE 3] 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 Documented (not given) by: Griffin Mccray CMA on 09/07/24 15:39 Reason Not Given: Not Given Coding Level of Care Code Est Pt Level 3 (70470) Diagnoses Immunizations incomplete Z28.39 Assessment & Plan Assessment & Plan (1) Immunizations incomplete: Code(s): Z28.39 - Other underimmunization status Category: Medical Plan Assessment and Plan 44-year-old female presenting with the need for immunization boosters due to insufficient immunity detected in recent laboratory assessments. Her immunity to Measles, is inadequate, and she is also non-reactive for Hepatitis B despite potential past vaccination. The primary goal of today's visit is to initiate and complete the necessary vaccination schedule to ensure adequate immunity. 1. Insufficient Immunity To Measles Administered the MMR booster in the current visit to address insufficient immunity. Discussed the potential side effects of vaccines, including local pain, swelling, and allergic reactions. 2. Non-Reactive Hepatitis B Immunity Initiated the Hepatitis B vaccination series with the first injection admi nistered today. The series will be completed over six months with subsequent injections scheduled at one to three months and then at six months. Documentation of each administration will be provided, and the patient is advised to schedule the remaining doses accordingly. Emphasized the importance of completing all three shots to achieve immunity. Diagnostic results - Labs: - Non-reactive Hepatitis B immunity - Insufficient immunity to Mumps, Rubella, and Measles confirmed through laboratories Problem List - Insufficient Immunity to Measles, Mumps, and Rubella - Non-reactive Hepatitis B Immunity Patient Instructions - Receive the first Hepatitis B vaccine today and follow the schedule for the remaining doses. - Return for the remaining two Hepatitis B doses as scheduled in one to three months and six months following the first dose. - Schedule an appointment or visit a pharmacy for a flu vaccine in a couple of weeks to avoid overstressing the immune system with multiple vaccines today. - Monitor for any side effects from the vaccines, such as local pain or swelling, and seek medical attention if severe reactions occur. - Document each vaccine administration in your health records to ensure proper follow-up. Orders: Orders MMR Immunization 09/07/24 Z23 - Encounter for immunization Hepatitis B Adult Immunization 09/07/24 Z23 - Encounter for immunization MMR Immunization 09/07/24 Z23 - Encounter for immunization
[2024-09-07 15:02] VITALS: BP 110/62; PULSE 63; O2SAT 99; BMI 29.5
== END 2024-09-07 15:42 | disposition home or self-care (01) ==
PROVIDERS: PCP Internal Medicine; Visit Provider Internal Medicine
DX: Z28.39 Other underimmunization status (principal)

== ENCOUNTER → 2024-09-07 14:56 | Outpatient (BNVA) | payer OTHER, SELFPAY | PROVIDERS: PCP Internal Medicine; Visit Provider Internal Medicine | DX: Z23 Encounter for immunization (principal); Z28.39 Other underimmunization status | CPT/HCPCS: 90471; 90472; 90707; 90746; 99212 ==

== ENCOUNTER 2024-10-12 15:24 | Outpatient (AMB) | payer OTHER, SELFPAY ==
[2024-10-12 15:30] VITALS: BP 110/68; PULSE 68; O2SAT 100
--- NOTE | 2024-10-12 15:30 | A.OFFPC_ITS ---
Vital Signs 10/12/24 15:30 Weight 157 lb BP 110/68 Blood Pressure Location Rt brachial Position Sitting Pulse 68 Pulse Source Pulse Oximeter Pulse Oximetry (%) 100 Oxygen Delivery Method Room Air Intake Visit Reasons: 1m follow up Allergies No Known Allergies Allergy (Verified 10/12/24 15:30) Medication List - Last Reconciled 10/12/24 by Junaid Sadler MD cholecalciferol (vitamin D3) (Vitamin D3) 125 mcg PO DAILY ferrous sulfate 300 mg (5 mL) PO BID 90 days Tobacco use date assessed: 09/07/24 Dental Screening Dental Screen Date: 09/07/24 HPI 1m follow up HPI Details - The patient is a 44-year-old female pr esenting for vaccination update and TB screening evaluation. - TB screening was completed in July; results are documented. - Scheduled to receive influenza and oth er vaccinations during this visit. - No additional symptoms reported or dis cussed. Plan The focus for today?s visit is on updating the patient's vaccinations and evaluating the Tuberculosis TB) screening that was completed in July. She will receive her influenza vaccination and any other necessary immunizations to keep her vaccine regimen up-to-date. Patient Instructions - Ensure to complete any pending paperwo rk related to your TB screening and vaccinations. - Receive influenza and 2nd dose of hepa titis-B vaccine Review of Systems - General: Reports feeling well without any current symptoms or complaints. - Immunization: Reports missing document ation for previous vaccinations and TB screening; otherwise, set to receive planned vaccinations. - General: No fever no chills - Neurological: No headaches no dizziness - Ear nose throat: No sore throat no hearing difficulty no ear pain - Cardiovascular: No syncope, no chest pain, no palpitations - Gastrointestinal: No nausea vomiting or diarrhea - Endocrine: No polyuria polydipsia no heat intolerance - Genitourinary: No dysuria , no blood in urine Physical Exam - General: No acute distress - HEENT: No acute findings - Neck: Supple - Respiratory system: Able to talk in f ull sentences, no audible wheeze - cardiovascular: S1-S2 regular in rat e and rhythm - Gastrointestinal: No pain - Extremities: No new findings - INFORMATION TECHNOLOGY ANALYST: Alert awake oriented x3 motor se nsory intact - Skin: Normal turgor PFSH Social History Housing: House Alcohol intake: never Patient Tobacco Use Status: Never used Tobacco e-Cigarette/Vaping Use: Never Used Second Hand Smoke Exposure: No service: No Current occupational status: employed Cognitive needs: No Hearing needs: No Vision needs: No Questionnaire Thrive Questionnaire Date Thrive assessed: 04/06/22 ANNELIESE-7 AMB Questionnaire ANNELIESE-7 Date ANNELIESE - 7 assessed: 04/06/22 Source: Developed by Drs. David Tracy, Danielle Armstrong, Artemio Drummond and colleagues, with an educational jose from [employer]. Physical exam (Primary Care) Vital Signs: Last Vital Signs Pulse 68 10/12/24 15:30 BP 110/68 10/12/24 15:30 Pulse Ox 100 10/12/24 15:30 Oxygen Delivery Method Room Air 10/12/24 15:30 Tobacco/Smoking Status: Tobacco use Status Tobacco use date assessed 09/07/24 09/07/24 15:05 Patient Tobacco Use Status Never used Tobacco 09/07/24 15:05 e-Cigarette/Vaping Use Never Used 09/07/24 15:05 Thrive Assessment: Date of Thrive Assessment Date Thrive assessed 04/06/22 09/07/24 15:05 Coding Level of Care Code Est Pt Level 3 (99788) Diagnoses Immunizations incomplete Z28.39 Assessment & Plan Assessment & Plan (1) Immunizations incomplete: Code(s): Z28.39 - Other underimmunization status Category: Medical Plan - The patient is a 44-year-old female presenting for vaccination update and TB screening evaluation. - TB screening was completed in July; results are documented. - Scheduled to receive influenza and other vaccinations during this visit. - No additional symptoms reported or discussed. Plan The focus for today?s visit is on updating the patient's vaccinations and evaluating the Tuberculosis TB) screening that was completed in July. She will receive her influenza vaccination and any other necessary immunizations to keep her vaccine regimen up-to-date. Patient Instructions - Ensure to complete any pending paperwork related to your TB screening and vaccinations. - Receive influenza and 2nd dose of hepatitis-B vaccin
== END 2024-10-12 15:52 | disposition home or self-care (01) ==
PROVIDERS: PCP Internal Medicine; Visit Provider Internal Medicine
DX: Z23 Encounter for immunization (principal); Z28.39 Other underimmunization status

== ENCOUNTER → 2024-10-12 15:24 | Outpatient (BNVA) | payer OTHER, SELFPAY | PROVIDERS: PCP Internal Medicine; Visit Provider Internal Medicine | DX: Z23 Encounter for immunization (principal); Z28.39 Other underimmunization status | CPT/HCPCS: 90471; 90472; 90656; 90746; 99212 ==

== ENCOUNTER 2025-04-23 14:02 | Outpatient (AMB) | payer OTHER, SELFPAY ==
[2025-04-23 14:04] VITALS: BP 116/70; PULSE 74; O2SAT 98; BMI 29.3
--- NOTE | 2025-04-23 14:04 | A.OFFPC_ITS ---
Vital Signs 04/23/25 14:04 Height 5 ft 1 in Weight 155 lb BMI 29.3 BP 116/70 Blood Pressure Location Lt brachial Position Sitting Pulse 74 Pulse Source Pulse Oximeter Pulse Oximetry (%) 98 Oxygen Delivery Method Room Air Intake Visit Reasons: annual exam Household Assistant Required: No Allergies No Known Allergies Allergy (Verified 04/23/25 14:04) Medication List - Last Reconciled 04/23/25 by Junaid Sadler MD cholecalciferol (vitamin D3) (Vitamin D3) 125 mcg PO DAILY vitamin B complex 1 tab PO DAILY Tobacco use date assessed: 04/23/25 Dental Screening Dental Screen Date: 04/23/25 Did you have a dental visit in the last 12 months?: Yes Did you have a dental problem in the last 6 months where you did not have access to dental care?: No Was dental information given to patient?: Patient has dentist HPI annual exam HPI Details - The patient is a 45-year-old female pr esenting for a physical exam, - chronic leukopenia : Patient has been evaluated by Hematology [facility] It was first identified in 2020 during routine blood work, with a white blood cell count ranging from 3.6 to 3.9. This has been stable but below the normal reference range of 4.8. - The patient reports a history of heavy menstrual bleeding attributed to uterine fibroids, causing prior anemia. The heavy menstrual cycles occur predominantly over the first three days, followed by a reduction but a subsequent return to bleeding intermittently. - going through potential hormonal imbal ance, suggesting perimenopausal changes based on irregular and extended menstrual cycles; there was an instance of a month and a half without periods. - There is a history of prior dense [address] st tissue noted on a mammogram a few years ago, with unclear imaging requiring follow-up. 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 - She resides in [place]. Health Maintenance - Recent discussion about the necessity and timing of repeat blood counts and mammography. - Was advised to have her laboratory wor k re-evaluated every six months. - Immunization update with hepatitis B s eries completion noted. - need OBGYN visit Patient Instructions - Schedule regular follow-ups for blood count and overall wellness every six months. - Engage in regular mammography follow-u ps as advised. - Continue and monitor vitamin D use, [facility] consideration for multivitamin intake. - Discuss any heavy menstrual bleeding w [facility]. Patient would like to be referred to Nikhil woman Review of Systems. - General: No fever no chills - Neurological: No headaches no dizzin ess - Ear nose throat: No sore throat no hearing difficulty no ear pain - Cardiovascular: No syncope, no chest pain, no palpitations - Gastrointestinal: No nausea vomiting or diarrhea - Endocrine: No polyuria polydipsia no heat intolerance - Genitourinary: No dysuria - Skin: No new complaints Physical Exam General: Cooperative, healthy appearing, comfortable, no acute distress Orientation: Patient oriented x3 Head: Normal to inspection Ears: Within normal limit visually Nose: Normal external nose present Face and sinus: Normal facial exam Eyes: Appearance normal, extraocular movement intact pupils reactive Neck: Normal visual inspection and supple Respiratory: Normal respiratory effort and able to speak in complete sentences. Clear to auscultation, no stridor Cardiovascular: S1 and S2 RRR GI: Normal to inspection. Soft to palpation and nontender Skin: Turgor normal Neuro: Patient oriented x3, motor sensory intact, balance intact, tandem pass Extremities: Normal to inspection, full range of motion [facility] Surgical History No pertinent past surgical history Social History Housing: House Alcohol intake: never Patient Tobacco Use Status: Never used Tobacco e-Cigarette/Vaping Use: Never Used Second Hand Smoke Exposure: No service: No Current occupational status: employed Cognitive needs: No Hearing needs: No Vision needs: No Questionnaire PHQ-9 Over the last 2 weeks, how often have you been bothered by any of the following problems? 1. Little interest or pleasure in doing things: not at all 2. Feeling down, depressed, or hopeless: not at all 3. Trouble falling or staying asleep, or sleeping too much: not at all 4. Feeling tired or having little energy: not at all 5. Poor appetite or overeating: not at all 6. Feeling bad about yourself - or that you are a failure or have let yourself or your family down: not at all 7. Trouble concentrating on things, such as reading the newspaper or watching television: not at all 8. Moving or speaking so slowly that other people could have noticed. Or the opposite - being so fidgety or restless that you have been moving around a lot more than usual: not at all 9. Thoughts that you would be better off or of hurting yourself in some way: not at all Total score: 0 Depression Screening Interpretation: Negative Depression Screening Done: Yes 23879 - PHQ-9 Billing: Yes Source: Developed by Drs. David Tracy, Danielle Armstrong, Artemio Drummond and colleagues, with an educational jose from [email or web address]. Thrive Questionnaire Date Thrive assessed: 04/23/25 I am a: Patient What is your living situation today?: I have a steady place to live Within the past 12 months, did the food you bought not last and you didn't have the money to get more?: Never true Within the past 12 months, did you worry whether your food would run out before you got money to buy more?: Never true Do you have trouble paying for medicines?: No Do you have trouble getting transportation to medical appointments?: No Do you have trouble paying your heating and electricity bill?: No Do you have trouble taking care of your child, family member or friend?: No Do you have trouble with day-to-day activities such as bathing, preparing meals, shopping, managing finances, etc.?: No Are you currently unemployed and looking for a job?: No Are you interested in more education?: No Please select the resources that you would like help with: None Currently or been in a relationship where the following occur: No concerns reported THRIVE Score: 0 AUDIT C Alcohol Use Questionnaire (AUDIT-C) 1. How often do you have a drink containing alcohol?: Never 3. How often do you have six or more drinks on one occasion?: Never Total Score: 0 Score Reviewed/Action Taken: Yes ANNELIESE-7 AMB Questionnaire ANNELIESE-7 Date ANNELIESE - 7 assessed: 04/23/25 Feeling nervous, anxious, or on edge: 0 = Not at all Not being able to stop or control worryin = Not at all Worrying too much about different things: 0 = Not at all Trouble relaxin = Not at all Being so restless that it is hard to sit still: 0 = Not at all Becoming easily annoyed or irritable: 0 = Not at all Feeling afraid as if something awful might happen: 0 = Not at all Total ANNELIESE-7 score (0-4 normal; 5-9 mild; 10-14 moderate; 15-21 severe): 0 Source: Developed by Drs. David Tracy, Danielle Armstrong, Artemio Drummond and colleagues, with an educational jose from [email or web address]. ANNELIESE-7 Assessment Billing ANNELIESE-7 Assessment Tool: ANNELIESE-7 Assessment 98212 Physical exam (Primary Care) Vital Signs: Last Vital Signs Pulse 74 04/23/25 14:04 BP 116/70 04/23/25 14:04 Pulse Ox 98 04/23/25 14:04 Oxygen Delivery Method Room Air 04/23/25 14:04 BMI result Body Mass Index 29.3 Tobacco/Smoking Status: Tobacco use Status Tobacco use date assessed 04/23/25 04/23/25 14:05 Patient Tobacco Use Status Never used Tobacco 04/23/25 14:05 e-Cigarette/Vaping Use Never Used 04/23/25 14:05 PHQ-9: PHQ-9 Score PHQ-9: Total score 0 04/23/25 14:28 Depression Screening Interpretation: Negative Thrive Assessment: Date of Thrive Assessment Date Thrive assessed 04/23/25 04/23/25 14:05 Currently or been in a relationship where the following occur: No concerns reported Immunizations Engerix-B (PF) 20 mcg/mL intramuscular syringe Performing Provider: Junaid Sadler MD Performing Location: [facility] [place], [place] [facility] Administered by: SHIRLEY Joel on 04/23/25 14:43 Dose Route Admin Location Dispensed Lot Number Expiration Date [facility] Sales Account Director 1 mL IM Right Deltoid 1 mL [id number] 05/23/26 03332-266-00 [employer] Total Dispensed Waste 1 mL 0 % VIS Given Date VIS Provided VIS Publication Date 04/23/25 Single Vaccine 23 Eligibility Eligibility Date Funding Source Not [facility] Eligible 04/23/25 Private Coding Level of Care Code Est Pt Level 3 (54114) Est Pt Prev Care 40-64y(57783) Diagnoses Encounter for general adult medical examination with abnormal findings Z00.01 Neutropenia, unspecified type D70.9 Neutropenia type: unspecified Overweight (BMI 25.0-29.9) E66.3 Additional Codes ANNELIESE-7 Assessment Billing - ANNELIESE-7 Assessment Tool: ANNELIESE-7 Assessment 12148 ([id number]) PHQ-9 - 12326 - PHQ-9 Billing: Yes ([id number]) Assessment & Plan Assessment & Plan (1) Encounter for general adult medical examination with abnormal findings: Code(s): Z00.01 - Encounter for general adult medical examination with abnormal findings Category: Medical (2) Neutropenia: Code(s): D70.9 - Neutropenia, unspecified Category: Medical Qualifiers: Neutropenia type: unspecified Qualified Code(s): D70.9 - Neutropenia, unspecified (3) Overweight (BMI 25.0-29.9): Code(s): E66.3 - Overweight Category: Medical Plan - The patient is a 45-year-old female presenting for a physical exam, - chronic leukopenia : Patient has been evaluated by Hematology [facility] It was first identified in 2020 during routine blood work, with a white blood ce ll count ranging from 3.6 to 3.9. This has been stable but below the normal reference range of 4.8. - The patient reports a history of heavy menstrual bleeding attributed to uterine fibroids, causing prior anemia. The heavy menstrual cycles occur predominantly over the first three days, followed by a reduction but a subsequent return to bleeding intermittently. - going through potential hormonal imbalance, suggesting perimenopausal changes based on irregular and extended menstrual cycles; there was an instance of a month and a half without periods. - There is a history of prior dense breast tissue noted on a mammogram a few years ago, with unclear imaging requiring follow-up. 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 - She resides in [place]. Health Maintenance - Recent discussion about the necessity and timing of repeat blood counts and mammography. - Was advised to have her laboratory work re-evaluated every six months. - Immunization update with hepatitis B series completion noted. - need OBGYN visit Patient Instructions - Schedule regular follow-ups for blood count and overall wellness every six months. - Engage in regular mammography follow-ups as advised. - Continue and monitor vitamin D use, with consideration for multivitamin intake. - Discuss any heavy menstrual bleeding with [facility]. Patient would like to be referred to Nikhil nascimento Orders: Orders Comprehensive [place]. Panel Fast Today D70.9 - Neutropenia, unspecified, E66.3 - Overweight, Z00.01 - Encounter for general adult medical examination with abnormal findings Vitamin D 25-OH (D2 and D3) Today D70.9 - Neutropenia, unspecified, E66.3 - Overweight, Z00.01 - Encounter for general adult medical examination with abnormal findings Vitamin B12 Today D70.9 - Neutropenia, unspecified, E66.3 - Overweight, Z00.01 - Encounter for general adult medical examination with abnormal findings MM tomosynthesis screening BI Today Z12.31 - Encounter for screening mammogram for malignant neoplasm of breast Hepatitis B Adult Immunization Today Z23 - Encounter for immunization Complete Blood Count Auto Diff Today D70.9 - Neutropenia, unspecified, E66.3 - Overweight, Z00.01 - Encounter for general adult medical examination with abnormal findings Lipid Panel Today D70.9 - Neutropenia, unspecified, E66.3 - Overweight, Z00.01 - Encounter for general adult medical examination with abnormal findings TSH reflex Free T4 Today D70.9 - Neutropenia, unspecified, E66.3 - Overweight, Z00.01 - Encounter for general adult medical examination with abnormal findings Referrals [facility] Referral Z01.419 - Encounter for gynecological examination (general) (routine) without abnormal findings
--- OUTSIDE RECORDS SUMMARY | 2025-04-23 15:22 | XMS_ITS | Clinical Summary ---
Author Organization [facility] Facility Address [address] [place] [id number] Care Team Providers Care Folder Hand Name Role Phone Unavailable Primary Care Provider Unavailabl e Social History Tobacco Use Types Packs/Day Years Used Date Smoking Tobacco: Never Assessed Comments Unknown Sex and Gender Information Value Date Recorded Sex Assigned at Not on file Legal Sex Female 5:24 PM EST Gender Identity Not on file Sexual Orientation Not on file Plan of Treatment Health Maintenance Due Date Last Done Comments Hepatitis B Vaccine (1 of 3 - 19+ 3-dose series) 1997 Influenza Vaccine (#1) 2025 Pneumococcal Vaccine: Peds ( 0 to 5 Years) and At-Risk Patients (6 to 49 Years) Aged Out No longer eligible b ased on patient's age to complete this topic
== END 2025-04-23 14:36 | disposition home or self-care (01) ==
LOC: HO.HMCC 14:03
PROVIDERS: PCP Internal Medicine; Visit Provider Internal Medicine
DX: Z00.01 Encounter for general adult medical examination with abnormal findings (principal); E66.3 Overweight; Z68.29 Body mass index [BMI] 29.0-29.9, adult; D70.9 Neutropenia, unspecified; Z23 Encounter for immunization

== ENCOUNTER → 2025-04-23 14:02 | Outpatient (BNVA) | payer OTHER, SELFPAY | PROVIDERS: PCP Internal Medicine; Visit Provider Internal Medicine | DX: Z00.01 Encounter for general adult medical examination with abnormal findings (principal); D70.9 Neutropenia, unspecified; E66.3 Overweight; Z68.29 Body mass index [BMI] 29.0-29.9, adult; Z23 Encounter for immunization | CPT/HCPCS: 90471; 90746; 96127; 99396 ==

== ENCOUNTER 2025-05-14 08:00 | Outpatient (REF) | payer OTHER, SELFPAY ==
--- OUTSIDE RECORDS SUMMARY | 2025-05-14 08:05 | XMS_ITS | Clinical Summary ---
Author Organization [facility] Facility Address [address] [place] [address] Care Team Providers Care Retail Coordinator Name Role Phone Unavailable Primary Care Provider [...]
[2025-05-14 10:04] LABS: MANUAL DIFF FLAG NO
[2025-05-14 10:18] LABS: Hematocrit 35.1 % (37.0-47.0); Hemoglobin 11.1 g/dl (12.0-16.0); Imm Gran Abs Auto 0.01 X10*3/uL (0.00-0.03); Imm Gran Pct Auto 0.3 % (0.0-0.4); Lymphocytes Absolute Auto 0.9 X10*3/uL (1.2-4.9); Mean Corpuscular HGB Conc 31.6 g/dl (31.0-35.0); Mean Corpuscular Hemoglobin 26.6 pg (27.0-33.0); Mean Corpuscular Volume 84.2 fL (80.0-98.0); NRBC Abs Auto 0.000 X10*3/uL (0.0-0.012); NRBC Pct Auto 0.0 /100WBC (0.0-0.2); Platelet Count 204 X10*3/uL (160-400); Red Blood Count 4.17 X10*6/uL (4.20-5.50); White Blood Count 3.2 X10*3/uL (4.8-10.8)
[2025-05-14 10:47] LABS: Alanine Aminotransferase 17 U/L (0-31); Albumin Level 4.1 g/dL (3.5-5.0); Alkaline Phosphatase 48 U/L (39-117); Anion Gap 11 (12-20); Aspartate Amino Transferase 22 U/L (5-31); Blood Urea Nitrogen 9 mg/dL (9-16); Calcium 8.7 mg/dL (8.4-10.2); Carbon Dioxide 28 mmol/L (22-29); Chloride 106 mmol/L (96-108); Cholesterol 174 mg/dL (<200); Estimated Glomerular Filt Rate > 60; HDL Cholesterol 65 mg/dL (>40); Potassium 3.8 mmol/L (3.3-5.1); Sodium 141 mmol/L (135-145); Total Protein 7.1 g/dL (6.5-8.0); Triglycerides 43 mg/dL (<150)
[2025-05-14 11:00] LABS: Vitamin B12 657 pg/mL (200-900)
[2025-05-18 15:23] LABS: Vitamin D 25-OH, D2 <4 ng/mL; Vitamin D 25-OH, D3 48 ng/mL; Vitamin D 25-OH, Total 48 ng/mL (30-100)
== END 2025-05-14 08:01 | disposition home or self-care (01) ==
LOC: HO.HMGCLDS 08:00
PROVIDERS: PCP Internal Medicine; Visit Provider Internal Medicine
DX: Z00.01 Encounter for general adult medical examination with abnormal findings (principal); D70.9 Neutropenia, unspecified; E66.3 Overweight
CPT/HCPCS: 36415; 80053; 80061; 82306; 82607; 84443; 85025

== ENCOUNTER 2025-05-23 08:58 | Outpatient (AMB) | payer OTHER, SELFPAY ==
--- NOTE | 2025-05-23 09:37 | MHC.PC.OV ---
Intake Visit Reasons: labs review Allergies No Known Allergies Allergy (Verified 04/23/25 14:04) Medication List - Last Reconciled 05/23/25 by Junaid Sadler MD cholecalciferol (vitamin D3) (Vitamin D3) 125 mcg PO DAILY vitamin B complex 1 tab PO DAILY Tobacco use date assessed: 04/23/25 Dental Screening Dental Screen Date: 04/23/25 HPI labs review HPI Details Chief Complaint The patient presents for a review of low hemoglobin levels and irregular heavy menstrual cycles. History of Present Illness The patient is a 45 year old female presenting with anemia and heavy menstrual bleeding. Anemia: - History indicates a drop in hemoglobin levels from 12.4 in July of last year to 11.1. - Patient reported stopping the iron supplement for a while and mentioned past use of liquid iron. - Occasional heavy menstruation after the first three days was noted. Heavy Menstrual Bleeding: - The patient reports having heavy menstrual cycles sometimes after the first three days. - There is no continuous heavy bleeding but occasional severity is implied. - No further details provided on duration or related symptoms. Medical History: - Liquid iron supplements previously prescribed for anemia. - Vitamin D usage reported as being taken. Medications: - Vitamin D supplement (specific dose not mentioned). Social History: - The patient is currently working, interfering with the ability for video consultation. Diagnostic Results: - Labs: Hemoglobin declined from 12.4 in July of the previous year to 11.1 during the current visit. - Other labs (electrolytes, kidney function, liver enzymes) were reported as normal. - Cholesterol levels well-controlled. - Vitamin B12 and vitamin D levels are sufficient. - Thyroid function is normal. Problem List - Anemia - Heavy Menstrual Bleeding Patient Instructions - Restart liquid iron supplement, suggested twice a week, with consideration of taking it every day. - Continue Vitamin D supplement twice a week as levels are normal. - Schedule and complete a blood test in three months to monitor hemoglobin and white blood cell count. Review of Systems - General: No fever no chills - Neurological: No headaches no dizziness - Ear nose throat: No sore throat no hearing difficulty no ear pain - Cardiovascular: No syncope, no chest pain, no palpitations - Gastrointestinal: No nausea vomiting or diarrhea - Endocrine: No polyuria polydipsia no heat intolerance - Genitourinary: No dysuria , no blood in urine [facility] Surgical History No pertinent past surgical history Social History Housing: House Alcohol intake: never Patient Tobacco Use Status: Never used Tobacco e-Cigarette/Vaping Use: Never Used Second Hand Smoke Exposure: No service: No Current occupational status: employed Cognitive needs: No Hearing needs: No Vision needs: No Questionnaire Thrive Questionnaire Date Thrive assessed: 04/23/25 I am a: Patient What is your living situation today?: I have a steady place to live THRIVE Score: 0 ANNELIESE-7 AMB Questionnaire ANNELIESE-7 Date ANNELIESE - 7 assessed: 04/23/25 Source: Developed by Drs. David Tracy, Danielle Armstrong, Artemio Drummond and colleagues, with an educational jose from [employer] Physical exam (Primary Care) Tobacco/Smoking Status: Tobacco use Status Tobacco use date assessed 04/23/25 05/23/25 09:37 Patient Tobacco Use Status Never used Tobacco 05/23/25 09:37 e-Cigarette/Vaping Use Never Used 05/23/25 09:37 Thrive Assessment: Date of Thrive Assessment Date Thrive assessed 04/23/25 05/23/25 09:37 Telehealth Telehealth Telehealth Platform: [facility] Location of provider rendering services: practice address Location of patient: address on file Patient Identification confirmed using: Name, : Yes Telehealth method: video (attempted) Patient verbally consented to treatment: Yes Patient verbally consented to billing insurance company: Yes Patient informed of any privacy concerns related to visit: Yes Minutes spent on Phone/Video with Pt.: 13 Coding Level of Care Code Tele Est Pt Level 3 (87770) Diagnoses Microcytic anemia D50.9 Menorrhagia with irregular cycle N92.1 Menorrhagia type: with irregular cycle Assessment & Plan Assessment & Plan (1) Microcytic anemia: Code(s): D50.9 - Iron deficiency anemia, unspecified Category: Medical (2) Heavy menstrual bleeding: Code(s): N92.0 - Excessive and frequent menstruation with regular cycle Category: Medical Qualifiers: Menorrhagia type: with irregular cycle Qualified Code(s): N92.1 - Excessive and frequent menstruation with irregular cycle Plan Chief Complaint The patient presents for a review of low hemoglobin levels and irregular heavy menstrual cycles. History of Present Illness The patient is a 45 year old female presenting with anemia and heavy menstrual bleeding. Anemia: - History indicates a drop in hemoglobin levels from 12.4 in July of last year to 11.1. - Patient reported stopping the iron supplement for a while and mentioned past use of liquid iron. - Occasional heavy menstruation after the first three days was noted. Heavy Menstrual Bleeding: - The patient reports having heavy menstrual cycles sometimes after the first three days. - There is no continuous heavy bleeding but occasional severity is implied. - No further details provided on duration or related symptoms. Medical History: - Liquid iron supplements previously prescribed for anemia. - Vitamin D usage reported as being taken. Medications: - Vitamin D supplement (specific dose not mentioned). Social History: - The patient is currently working, interfering with the ability for video consultation. Diagnostic Results: - Labs: Hemoglobin declined from 12.4 in July of the previous year to 11.1 during the current visit. - Other labs (electrolytes, kidney function, liver enzymes) were reported as normal. - Cholesterol levels well-controlled. - Vitamin B12 and vitamin D levels are sufficient. - Thyroid function is normal. Problem List - Anemia - Heavy Menstrual Bleeding Patient Instructions - Restart liquid iron supplement, suggested twice a week, with consideration of taking it every day. - Continue Vitamin D supplement twice a week as levels are normal. - Schedule and complete a blood test in three months to monitor hemoglobin and white blood cell count. Orders: Orders Complete Blood Count Auto Diff 05/23/25 D50.9 - Iron deficiency anemia, unspecified Ferritin 05/23/25 D50.9 - Iron deficiency anemia, unspecified Medications: Refilled ferrous sulfate 300 mg (5 mL) PO BID 900 mL 3RF 90 days
--- OUTSIDE RECORDS SUMMARY | 2025-05-23 10:00 | XMS_ITS | Clinical Summary ---
Author Organization [facility] Facility Address [address] [place] [id number] Care Team Providers Care Director Visual Name Role Phone Unavailable Primary Care Provider [...]
== END 2025-05-23 09:53 | disposition home or self-care (01) ==
LOC: HO.HMCC 08:59
PROVIDERS: PCP Internal Medicine; Visit Provider Internal Medicine
DX: D50.9 Iron deficiency anemia, unspecified (principal); N92.1 Excessive and frequent menstruation with irregular cycle